=== PATIENT | male | born 1975 | race Hispanic/Latino ===

== ENCOUNTER 2024-04-03 03:11 | Emergency (ER) | payer OTHER ==
[~2024-04-03] VITALS: Ht 175.3 cm; Wt 127.0 kg
[2024-04-03 03:12] VITALS: TEMP 97.9
--- NOTE | 2024-04-03 03:32 | ERN ---
ED Note History of Present Illness Stated Complaint: "PRESSURE" TO FACE AND LIMBS, HTN, RT FLANK PAIN Chief Complaint: Multiple Complaints Time Seen by MD: 03:20 Dictation: This is a 48-year-old obese male who comes into the ER complaining of weird feeling of feeling a pressure on his face limbs and he also experienced some right-sided flank pain for a day or 2 which resolved during my evaluation. He has a known history of hypertension and he takes olmesartan 40 mg at bedtime. He also is supposed to take metformin twice a day but he chose to take it only once a day on his own He snores quite heavily and wakes himself up many times in the night. He has never had any sleep study done to evaluate for obstructive sleep apnea syndrome He stated that he went to bed as usual and start snoring immediately and woke up in the middle of the night and called his son. Apparently he checked his blood pressure and it was 177/83 he wanted to get it checked out hence he came to the ER Temperature 97.9 pulse 82 respirations 18 blood pressure 190/108 with a pulse oximetry of 97% on room air He denied any headache blurred vision facial droop slurred speech diplopia motor weakness or seizure activity no tingling numbness. No hematuria burning micturition or dysuria His chronic medical problems include diabetes mellitus and hypertension morbid obesity Allergies: Coded Allergies: No Known Allergies (Unverified Allergy, Unknown, 09/08/13) Past Medical History Past Medical History: Diabetes-Type II, Hypertension Surgical History: Other Surgical History Other: LEFT ANKLE Family History: Negative Social History: Negative RN Note Reviewed/Agreed w/PFSH: Yes Review of System Dictation As described in the history of present illness Constitutional: Negative for fever,chills, and weight loss Eyes: Negative for injury, pain,redness, and discharge ENT: Negative for injury,pain or swelling Cardiovascular: Negative for chest pain, palpitations, and edema Respiratory: Negative for shortness of breath, cough, and wheezing, Abdomen/GI: Negative for abdominal pain, nausea, vomiting, diarrhea, and constipation Back: Negative for injury and pain : Negative for injury, bleeding and discharge MS/Extremity: Negative for injury and deformity Skin: Negative for rash, and discoloration Neuro: Negative for headache, weakness, numbness, tingling, and seizure Psych: Negative for suicide ideation, homicidal ideation, and hallucinations Initial Vital Sign VS Vital Signs Date Time Temp Pulse Resp B/P (MAP) Pulse Ox O2 Delivery O2 Flow Rate FiO2 04/03/24 03:12 97.9 82 18 190/108 97 Room Air 04/03/24 03:39 0 21 Physical Exam Dictation General: awake, alert, NAD very obese with a BMI of 41 Head/Face: Normocephalic, atraumatic Eyes: PERRL, EOMI, vision at baseline ENT: oral cavity clear, TMs clear, no signs of infection Neck: Trachea midline, supple, no nuchal rigidity, short and thick Cardiovascular: RRR, normal S1/S2, No MRGs, no JVD Respiratory: CTAB, no respiratory distress, No rales or wheezes Abdomen: Soft, non-tender, non-distended, normal bowel sounds, no guarding or rebound. Skin: Warm, dry, normal turgor, no rash MS/Extremity: Pulses equal, no cyanosis, neurovascular intact, FROM Neuro: COAx4, GCS 15, strength 5/5, CN 2-12 intact, normal cerebellar exam, normal gait, Psych: Normal behavior, mood, and affect normal Extremities-trace edema without any palpable cords, Homans sign is negative Results (Laboratory/Radiology) Laboratory/Radiology Laboratory Tests Test 04/03/24 03:35 04/03/24 04:16 White Blood Count 7.7 K/uL (4.8-10.8) Red Blood Count 5.55 MIL/uL (4.50-6.20) Hemoglobin 15.8 g/dL (14.0-18.0) Hematocrit 46.6 % (42-54) Mean Corpuscular Volume 84.0 fL (79-99) Mean Corpuscular Hemoglobin 28.5 pg (27.0-33.0) Mean Corpuscular Hemoglobin Concent 33.9 g/dL (32.0-36.0) Red Cell Distribution Width 13.3 % (11.0-15.5) Platelet Count 183 K/uL (130-400) Mean Platelet Volume 12.1 fL (7.5-10.5) H Immature Granulocyte % (Auto) 0.3 % (0-1) Neutrophils (%) (Auto) 46.6 % (40.0-77.0) Lymphocytes (%) (Auto) 41.1 % (21.0-51.0) Monocytes (%) (Auto) 8.9 % (3.0-13.0) Eosinophils (%) (Auto) 2.6 % (0.0-8.0) Basophils (%) (Auto) 0.5 % (0.0-5.0) Neutrophils # (Auto) 3.6 K/uL (1.8-7.7) Lymphocytes # (Auto) 3.2 K/uL (1.0-4.8) Monocytes # (Auto) 0.7 K/uL (0.1-1.0) Eosinophils # (Auto) 0.20 K/uL (0.00-0.70) Basophils # (Auto) 0.04 K/uL (0.00-0.20) Absolute Immature Granulocyte (auto 0.02 K/uL (0-1) Nucleated Red Blood Cells 0.0 % (0.0-0.19) Urine Color LIGHT-YELLOW (YELLOW) Urine Appearance CLEAR (CLEAR) Urine pH 5.5 (5.0-8.0) Urine Specific [place] 1.017 (1.001-1.031) Urine Protein NEGATIVE mg/dL (NEGATIVE) Urine Glucose (UA) NEGATIVE mg/dL (NEGATIVE) Urine Ketones NEGATIVE mg/dL (NEGATIVE) Urine Occult Blood NEGATIVE (NEGATIVE) Urine Nitrate NEGATIVE (NEGATIVE) Urine Bilirubin NEGATIVE mg/dL (NEGATIVE) Urine Urobilinogen 0.2 mg/dL (0.2-1.0) Urine Leukocyte Esterase NEGATIVE Raymond/uL Troponin I High Sensitivity 8 ng/L (4-75) Urine Opiates Screen NEGATIVE (NEGATIVE) Urine Barbiturates Screen NEGATIVE (NEGATIVE) Urine Phencyclidine Screen NEGATIVE (NEGATIVE) Urine Amphetamines Screen NEGATIVE (NEGATIVE) Urine Benzodiazepines Screen NEGATIVE (NEGATIVE) Urine Cocaine Screen NEGATIVE (NEGATIVE) Urine Marijuana (THC) Screen NEGATIVE (NEGATIVE) Sodium Level 139 mmol/L (136-145) Potassium Level 3.9 mmol/L (3.5-5.1) Chloride Level 102 mmol/L (101-111) Carbon Dioxide Level 29 mmol/L (21-32) Blood Urea Nitrogen 13 mg/dL (7-18) Creatinine 0.8 mg/dL (0.5-1.3) Glomerular Filtration Rate Calc 108 mL/min (>90) Random Glucose 139 mg/dL (70-105) H Total Calcium 8.6 mg/dL (8.5-10.1) Lipase 33 U/L (16-77) Labs Reviewed?: Yes ED Course ED Course Orders Procedure Category Date Status Time Urinalysis Profile LAB 04/03/24 Complete 03:22 Cbc With Differential LAB 04/03/24 Complete 03:23 Troponin I High LAB 04/03/24 Complete Sensitivity 03:23 Drug Screen Urine LAB 04/03/24 Complete 03:29 Hydralazine 20mg Inj PHA 04/03/24 Complete (Apresoline 20mg In 03:30 Basic Metabolic Panel LAB 04/03/24 Complete 04:16 Lipase LAB 04/03/24 Complete 04:16 Current Medications Medications (Trade) Dose Ordered Sig/José Miguel Route PRN Reason Start Time Stop Time Status Last Admin Dose Admin Hydralazine HCl (APRESOLine 20MG INJ) 20 mg ONCE ONCE IV 04/03/24 03:30 04/03/24 03:31 DC 04/03/24 04:05 Vital Signs Date Time Temp Pulse Resp B/P (MAP) Pulse Ox O2 Delivery O2 Flow Rate FiO2 04/03/24 04:48 74 16 156/81 98 Room Air* 0 21 04/03/24 03:39 74 16 163/93 98 Room Air* 0 21 04/03/24 03:12 97.9 82 18 190/108 97 Room Air We will perform diagnostic labs, advanced imaging and administer medications according to the patient's complaint. Once the results are available, will review and personally interpreted the labs to rule out any acute life- threatening emergency the trach require immediate intervention and treatment. I will then re-evaluate the patient after treatment and diagnostic exams have return to determine whether the patient requires any further testing, can safely be discharged home or need further admission to hospital for additional treatment and evaluation. Labs reviewed CBC is normal urinalysis is unremarkable. UDS is negative. Patient's repeat blood pressure after a dose of hydralazine was 163/93. I had a long discussion with the patient and his son about likely explanation for his uncontrolled blood pressure which is not uncommon with untreated sleep apnea syndrome. Considering his body habitus, thick short neck which is at least more than 18-19 cm circumference, Mallampati score of 4, it is very highly likely that patient has a obstructive sleep apnea syndrome. Respiratory events during sleep or associated with arousal and increase in the blood pressure. They both verbalized full understanding and I had recommended outpatient sleep study and also reiterated the compliance with medications, aggressive weight loss and lifestyle changes. Medical Decision Making MDM MDM: Differential diagnosis: Nocturnal hypertensive emergency or uncontrolled hypertension is likely related to undiagnosed and untreated sleep apnea sy ndrome. It is also questionable is the patient has been compliant with his antihypertensives. Rationale: Tests considered and ordered secondary to shared decision making include: Previous outside records reviewed: Old ER visits. Risk of complication and/or morbidity or mortality of patient management: None Medications-Per medication reconciliation Need for hospitalization: Patient does not meet criteria for hospitalization. Need for emergency major/minor surgery: No There are no social concerns with this patient. Prescription drug management Prescriptions will include symptomatic care Patient's prior external medical records from other ER visits were reviewed by me as indicated. Prior testing and results from previous visits were reviewed. Prior tests were taken into account with medical decision making and resource utilization, independent historian/historians were used to obtain complete medical history. I independently interpreted the test that were performed, results were reviewed by me and considered findings on radiology if ordered. Medical management and examination interpretation discussions were had by me with other qualified healthcare professionals as indicated for the patient's care. Problem List Problem List: (1) Obstructive sleep apnea syndrome in adult (2) Hypertensive urgency (3) Diabetes mellitus DX & DISP Disposition: Discharge Departure Impression: Primary Impression: Hypertensive urgency Additional Impressions: Diabetes mellitus, Obstructive sleep apnea syndrome in adult Condition: Stable Additional Instructions: Patient and the caregiver have been informed of all the diagnostic tests and the imaging conducted during the today's visit to the emergency room and has verbalized understanding of the results I have personally reviewed and interpreted all diagnostic exams performed here in the ER today as well as the vital signs documented by the nursing staff. The patient is now being discharged to home and should follow up with the primary care physician or the specialist as directed by the ER staff. Follow-up with primary care provider in 1 to 2 days. Take medications as directed here in the emergency room. Okay to continue home medications unless otherwise discussed during your visit in the emergency room today. Return to your nearest emergency room if symptoms worsen or if there is no improvement. Call 911 if you need immediate assistance. Take Tylenol or Motrin [id number] as needed and if no contraindications are present. Increase oral hydration. A wound culture or urine culture was ordered here in the emergency room department please follow-up with primary care provider and advise them to get repeat ports from our facility. If you had any Norbert wrap/splints that were applied here, please do not remove them until you see your primary care or specialty. Patient stated that he has a primary care physician and he will follow up for home sleep study. Referrals: SELF,REFERRAL (PCP) GUERRERO RUELAS MD Apr 03, 2024 03:32
[2024-04-03 03:45] LABS: BASOPHILS # (AUTO) 0.04 K/uL (0.00-0.20); BASOPHILS % (AUTO) 0.5 % (0.0-5.0); EOSINOPHILS % (AUTO) 2.6 % (0.0-8.0); HEMATOCRIT 46.6 % (42-54); IMMATURE GRANULOCYTE ABSOLUTE 0.02 K/uL (0-1); LYMPHOCYTES # (AUTO) 3.2 K/uL (1.0-4.8); LYMPHOCYTES % (AUTO) 41.1 % (21.0-51.0); MEAN CORPUSCULAR HEMOGLOBIN 28.5 pg (27.0-33.0); MEAN CORPUSCULAR HGB CONC 33.9 g/dL (32.0-36.0); MONOCYTES # (AUTO) 0.7 K/uL (0.1-1.0); MONOCYTES % (AUTO) 8.9 % (3.0-13.0); NEUTROPHILS # (AUTO) 3.6 K/uL (1.8-7.7); NEUTROPHILS % (AUTO) 46.6 % (40.0-77.0); PLATELET COUNT (AUTO) 183 K/uL (130-400); RED BLOOD CELL COUNT(AUTO) 5.55 MIL/uL (4.50-6.20); RED CELL DISTRIBUTION WIDTH 13.3 % (11.0-15.5); WHITE BLOOD COUNT (AUTO) 7.7 K/uL (4.8-10.8)
[2024-04-03 03:46] LABS: APPEARANCE,URINE CLEAR (CLEAR); BILIRUBIN,URINE NEGATIVE (NEGATIVE); COLOR,URINE LIGHT-YELLOW (YELLOW); GLUCOSE, URINE (UA) NEGATIVE (NEGATIVE); KETONES,URINE NEGATIVE (NEGATIVE); LEUKOCYTE ESTERASE ,URINE NEGATIVE Leu/uL (NEGATIVE); NITRATE,URINE NEGATIVE (NEGATIVE); OCCULT BLOOD,URINE NEGATIVE (NEGATIVE); PH,URINE 5.5 (5.0-8.0); PROTEIN,URINE NEGATIVE (NEGATIVE); UROBILINOGEN,URINE 0.2 mg/dL (0.2-1.0)
[2024-04-03 03:53] LABS: AMPHET/METH SCREEN,URINE NEGATIVE (NEGATIVE); BARBITURATE SCREEN, URINE NEGATIVE (NEGATIVE); BENZODIAZEPINES SCREEN,URINE NEGATIVE (NEGATIVE); CANNABINOID SCREEN,URINE NEGATIVE (NEGATIVE); COCAINE SCREEN,URINE NEGATIVE (NEGATIVE); OPIATE SCREEN,URINE NEGATIVE (NEGATIVE); PHENCYCLIDINE SCREEN,URINE NEGATIVE (NEGATIVE)
[2024-04-03 03:56] LABS: ADD UA MICROSCOPIC NO
[2024-04-03] MEDS: hydrALAZine 20MG/ML VIAL IV ONE (04:05)
[2024-04-03 04:44] LABS: CREATININE 0.8 mg/dL (0.5-1.3); POTASSIUM 3.9 mmol/L (3.5-5.1)
[2024-04-03 04:48] VITALS: BP 156/81; PULSE 74; RESP 16; O2SAT 98
== END 2024-04-03 05:06 | disposition home or self-care (01) ==
LOC: EDH 03:11
DX: I16.0 Hypertensive urgency (principal); G47.33 Obstructive sleep apnea (adult) (pediatric); E11.9 Type 2 diabetes mellitus without complications; I10 Essential (primary) hypertension; Z79.899 Other long term (current) drug therapy
CPT/HCPCS: 99283; 96374; 84484; 80048; 80305; 83690; 85025; 36415; 81003; J0360

== ENCOUNTER 2024-08-16 22:25 | Emergency (ER) | payer OTHER ==
[~2024-08-16] VITALS: Ht 175.3 cm; Wt 132.0 kg
[2024-08-16] MEDS: ketOROlac 15MG/ML VIAL (15MG/ML) IV ONE (23:12)
[2024-08-16] MEDS: LACTATED RINGERS 1000ML 1,000 ML IV ONE (23:13)
--- NOTE | 2024-08-16 23:20 | HMCIMG ---
CT ABDOMEN/PELVIS W/O CONTRAST HISTORY: Left lower quadrant pain COMPARISON: None TECHNIQUE: Multiple sequential axial images of the abdomen and pelvis were obtained from the dome of the diaphragm through symphysis pubis. Patient was not given contrast through intravenous route. Oral contrast was not given. FINDINGS: No pleural effusion is seen bilaterally. There is no evidence of parenchymal disease or pulmonary nodule of the visualized lower lungs. Degenerative changes of the thoracolumbar spine are present. The heart is not enlarged. Liver is unremarkable hepatic changes measuring 22 cm. The liver, spleen, adrenal glands and pancreas are unremarkable. No hydronephrosis is seen on the right. There is mild left hydronephrosis with 2 mm stone in the left UVJ junction. Fecal material is seen in the colon. There are normal size retroperitoneal and mesenteric lymph nodes. No ascites is seen. Atherosclerotic changes are present. Pelvic sidewalls are symmetric bilaterally. Bladder is poorly distended. IMPRESSION: 1. There is mild left hydronephrosis with 2 mm stone in the left UVJ junction. CT was performed with one or more following dose reduction techniques: automated exposure control, adjustment of the mA and kv according to patient's size, or use of a iterative reconstruction technique.
[2024-08-16 23:28] LABS: APPEARANCE,URINE CLOUDY (CLEAR); BILIRUBIN,URINE NEGATIVE (NEGATIVE); COLOR,URINE YELLOW (YELLOW); GLUCOSE, URINE (UA) NEGATIVE (NEGATIVE); KETONES,URINE NEGATIVE (NEGATIVE); LEUKOCYTE ESTERASE ,URINE NEGATIVE Leu/uL (NEGATIVE); NITRATE,URINE NEGATIVE (NEGATIVE); OCCULT BLOOD,URINE LARGE (NEGATIVE); PH,URINE 5.5 (5.0-8.0); PROTEIN,URINE 20 mg/dL (NEGATIVE); UROBILINOGEN,URINE 0.2 mg/dL (0.2-1.0)
[2024-08-16 23:42] LABS: ADD UA MICROSCOPIC YES
[2024-08-16 23:45] LABS: BASOPHILS # (AUTO) 0.03 K/uL (0.00-0.20); BASOPHILS % (AUTO) 0.2 % (0.0-5.0); EOSINOPHILS # (AUTO) 0.05 K/uL (0.00-0.70); EOSINOPHILS % (AUTO) 0.4 % (0.0-8.0); HEMATOCRIT 42.7 % (42-54); IMMATURE GRANULOCYTE ABSOLUTE 0.06 K/uL (0-1); LYMPHOCYTES # (AUTO) 1.5 K/uL (1.0-4.8); LYMPHOCYTES % (AUTO) 12.1 % (21.0-51.0); MEAN CORPUSCULAR HEMOGLOBIN 28.5 pg (27.0-33.0); MEAN CORPUSCULAR HGB CONC 33.3 g/dL (32.0-36.0); MEAN CORPUSCULAR VOLUME 85.6 fL (79-99); MONOCYTES % (AUTO) 7.8 % (3.0-13.0); PLATELET COUNT (AUTO) 208 K/uL (130-400); RED BLOOD CELL COUNT(AUTO) 4.99 MIL/uL (4.50-6.20); RED CELL DISTRIBUTION WIDTH 13.4 % (11.0-15.5); WHITE BLOOD COUNT (AUTO) 12.7 K/uL (4.8-10.8)
[2024-08-16] MEDS ORDERED: HYDR-4060 PO (23:51)
[2024-08-16] MEDS ORDERED: IBUP-2077 PO (23:51)
--- NOTE | 2024-08-16 23:52 | ERN ---
General Chief Complaint: Abdominal Pain Stated Complaint: LLQ ABDOMINAL PAIN Time Seen by MD: 22:31 History of Present Illness Initial Comments 48M hx kidney stones presents for left lower quadrant colicky type pain beginning earlier this afternoon. Mostly located in left lower quadrant. He describes the pain as feeling as though it is descending into his bladder. Severe at times. No vomiting. No fevers. He reports hesitancy with urination. No hematuria. No flank pain. No GI symptoms. Allergies: Coded Allergies: No Known Allergies (Unverified Allergy, Unknown, 09/08/13) Home Meds Active Scripts Hydrocodone/Acetaminophen (Hydrocodon-Acetaminophen 5-325) 5 Mg-325 Mg Tablet, 1 TAB PO TIDP PRN for pain for 5 Days, #15 TAB 0 Refills Prov:KERRY LEVI DO 08/16/24 Ibuprofen (Ibuprofen 800 mg Tab) 800 Mg Tab, 800 MG PO Q6H PRN for PAIN, #30 TAB Prov:KERRY LEVI DO 08/16/24 Past Medical History Past Medical History: Hypertension, Kidney Stone Past Surgical History: Other Surgical History Other: LEFT ANKLE SX Family History Family History: Negative Social History Social History: Negative ROS Dictation CONSTITUTIONAL: No chills, no fever, no weakness, no diaphoresis, no malaise. HEAD/FACE: No signs of trauma. EENT: No eye pain, no blurred vision, no tearing, no double vision, no ear pa in, no ear discharge, no nose pain, no nasal congestion, no throat pain, no throat swelling, no mouth pain. RESPIRATORY: No cough, no orthopnea, no SOB, no stridor, no wheezing. CARDIOVASCULAR: No chest pain, no edema, no palpitations, no syncope. GASTROINTESTINAL/ABDOMINAL: Left flank pain GENITOURINARY: No abnormal discharge, no dysuria, no frequent urination, no hematuria. No complaints of pain in the genitals. MUSCULOSKELETAL: No back pain, no gout, no joint pain, no joint swelling, no muscle pain, no muscle stiffness, no neck pain. INTEGUMENTARY: No change in color, no change in hair/nails, no dryness, no lesion, no lumps, no rash. NEUROLOGICAL/PSYCH: No anxiety, not depressed, no emotional problem, no headache, no numbness, no pre-existing deficit, no history of seizures, no tremors, no weakness. HEMATOLOGIC/LYMPHATIC: Not anemic, no history of blood clots, no apparent bleeding, no bruising, glands not swollen. All Systems Negative, Except as Noted. Physical Exam Physical Exam Dictation VITAL SIGNS: Reviewed. GENERAL APPEARANCE: Alert, oriented x3, no acute distress, obese. HEAD AND FACE: Non-traumatic. EYES: PERRL, pink conjunctivas, eyelid no trauma, anterior chamber clear. EARS: Pinnas intact and no signs of trauma or erythema. Ear canals clear and no discharge. TMs no erythema. NOSE: No discharge, no bleeding. OROPHARYNX: Mouth normal, teeth no caries, tongue pink. Pharynx clear, no erythema. Tonsils no exudates, no abscesses noted. Mucous membrane moist. NECK: Supple, non-tender, no thyromegaly, no masses, no JVD, no bruits. BREAST: Deferred. CHEST: No tenderness, no crepitus, no paradoxical movement, no retractions. LUNGS: Clear, well-ventilated, symmetric, no rales, no wheezing, no rhonchi, no stridor, good breath sounds bilaterally. HEART: Regular rate, regular rhythm, no murmur, no gallops. VASCULAR: No peripheral edema. ABDOMEN: Soft, positive bowel sounds, nondistended, no guarding, nontender, no rebound, no masses no hepatomegaly, no splenomegaly, no Carter's sign, no hernias. RECTAL: Deferred. GENITAL: Deferred. NEUROLOGICAL: Normal speech, gross motor function intact, gross sensory function intact. MUSCULOSKELETAL: Neck nontender, full range of motion, back nontender, full range of motion. EXTREMITIES: Nontender, full range of motion. SKIN: Color pink, dry, no turgor, no rash, no lacerations, no abrasions, no contusions. LYMPHATICS: Deferred. Results Laboratory and Microbiology Lab and Micro Result Laboratory Tests Test 08/16/24 23:14 08/16/24 23:37 Urine Color YELLOW (YELLOW) Urine Appearance CLOUDY (CLEAR) H Urine pH 5.5 (5.0-8.0) Urine Specific [place] 1.019 (1.001-1.031) Urine Protein 20 mg/dL (NEGATIVE) H Urine Glucose (UA) NEGATIVE mg/dL (NEGATIVE) Urine Ketones NEGATIVE mg/dL (NEGATIVE) Urine Occult Blood LARGE (NEGATIVE) H Urine Nitrate NEGATIVE (NEGATIVE) Urine Bilirubin NEGATIVE mg/dL (NEGATIVE) Urine Urobilinogen 0.2 mg/dL (0.2-1.0) Urine Leukocyte Esterase NEGATIVE Raymond/uL Urine RBC TNTC /HPF (0-1) H Urine WBC 2-5 /HPF (0-1) H Urine Calcium Oxalate Crystals RARE /LPF (None Seen) Urine Bacteria FEW /HPF (None Seen) Urine Hyaline Casts 2-5 /LPF (0-1 /LPF) H White Blood Count 12.7 K/uL (4.8-10.8) H Red Blood Count 4.99 MIL/uL (4.50-6.20) Hemoglobin 14.2 g/dL (14.0-18.0) Hematocrit 42.7 % (42-54) Mean Corpuscular Volume 85.6 fL (79-99) Mean Corpuscular Hemoglobin 28.5 pg (27.0-33.0) Mean Corpuscular Hemoglobin Concent 33.3 g/dL (32.0-36.0) Red Cell Distribution Width 13.4 % (11.0-15.5) Platelet Count 208 K/uL (130-400) Mean Platelet Volume 12.1 fL (7.5-10.5) H Immature Granulocyte % (Auto) 0.5 % (0-1) Neutrophils (%) (Auto) 79.0 % (40.0-77.0) H Lymphocytes (%) (Auto) 12.1 % (21.0-51.0) L Monocytes (%) (Auto) 7.8 % (3.0-13.0) Eosinophils (%) (Auto) 0.4 % (0.0-8.0) Basophils (%) (Auto) 0.2 % (0.0-5.0) Neutrophils # (Auto) 10.0 K/uL (1.8-7.7) H Lymphocytes # (Auto) 1.5 K/uL (1.0-4.8) Monocytes # (Auto) 1.0 K/uL (0.1-1.0) Eosinophils # (Auto) 0.05 K/uL (0.00-0.70) Basophils # (Auto) 0.03 K/uL (0.00-0.20) Absolute Immature Granulocyte (auto 0.06 K/uL (0-1) Nucleated Red Blood Cells 0.0 % (0.0-0.19) Sodium Level 137 mmol/L (136-145) Potassium Level 4.4 mmol/L (3.5-5.1) Chloride Level 102 mmol/L (101-111) Carbon Dioxide Level 24 mmol/L (21-32) Blood Urea Nitrogen 19 mg/dL (7-18) H Creatinine 0.9 mg/dL (0.5-1.3) Glomerular Filtration Rate Calc 104 mL/min (>90) Random Glucose 175 mg/dL (70-105) H Total Calcium 9.4 mg/dL (8.5-10.1) Lipase 28 U/L (16-77) MDM CC: Left lower abdominal pain Historian: Patient Comorbidities: Obesity, hypertension, history of kidney stones Limitations by social determinants of health: None Differential diagnosis: Kidney stone, GI pathology, other. Vital signs: Stable, remained stable in the ER. CT abdomen and pelvis without contrast (independently interpreted by me): Small stone at the UVJ. No hydronephrosis. No surgical pathology. Labs (independently ordered and interpreted by me): Mild leukocytosis 12 K left shift no bands. Chemistries unremarkable including renal function. Urinalysis shows blood no signs of bacteria. Treatment in ED: IV fluids, IV Toradol. I had offered the patient IV morphine, brought by the time the medicine was brought to the bedside the pain had greatly improved in the patient declined. Based on the patient's presentation, he has a simple kidney stone. There was no hydronephrosis, kidney disease renal function, signs of SIRS or sepsis, or uncontrolled vomiting, or uncontrolled pain. Plan will be to discharge with prescription for ibuprofen and [place] tabs. We will recommend PCP follow up. ED Course Orders Procedure Category Date Status Time Cbc With Differential LAB 08/16/24 Complete : Urinalysis Profile LAB 08/16/24 Complete 22:31 Lactated Ringers PHA 08/16/24 Complete 1000ml (Lactated 23:00 Ketorolac PHA 08/16/24 Complete Tromethamine 15mg/Ml 23:00 Morphine 4mg Syg PHA 08/16/24 Complete (Morphine 4mg Syg) 23:00 Ondansetron 4mg Inj PHA 08/16/24 Complete (Zofran 4mg Inj) 23:00 Ct Abdomen/Pelvis W/O CT 08/16/24 Resulted Contrast 22:31 Lipase LAB 08/16/24 Complete 22:31 Basic Metabolic Panel LAB 08/16/24 Complete 22:31 Current Medications Medications (Trade) Dose Ordered Sig/José Miguel Route PRN Reason Start Time Stop Time Status Last Admin Dose Admin Ketorolac Tromethamine (toRADol) 15 mg ONCE ONCE IV 08/16/24 23:00 08/16/24 23:01 DC 08/16/24 23:12 Lactated Ringer's 1,000 ml @ 0 mls/hr ONCE ONCE IV 08/16/24 23:00 08/16/24 23:01 DC 08/16/24 23:13 Morphine Sulfate (morPHINE 4MG SYG) 4 mg ONCE ONCE IVP 08/16/24 23:00 08/16/24 23:01 DC Ondansetron HCl (zoFRAN 4MG INJ) 4 mg ONCE ONCE IVP 08/16/24 23:00 08/16/24 23:01 DC Vital Signs Date Time Temp Pulse Resp B/P (MAP) Pulse Ox O2 Delivery O2 Flow Rate FiO2 08/16/24 23:15 98.1 96 20 150/90 99 Room Air* 0 21 08/16/24 22:27 98.2 97 18 154/90 95 Room Air 0 DX & DISP Disposition: Discharge Departure Impression: Primary Impression: Kidney stone on left side Condition: Stable Scripts Hydrocodone/Acetaminophen (Hydrocodon-Acetaminophen 5-325) 5 Mg-325 Mg Tablet 1 TAB PO TIDP PRN for pain for 5 Days, #15 TAB 0 Refills Prov: KERRY LEVI DO 08/16/24 Ibuprofen (Ibuprofen 800 mg Tab) 800 Mg Tab 800 MG PO Q6H PRN for PAIN, #30 TAB Prov: KERRY LEVI DO 08/16/24 Additional Instructions: You have a 2 mm kidney stone on the left side causing your pain. Your blood work is unremarkable. Your urinalysis shows blood consistent with a kidney stone but is otherwise unremarkable. The CT scan of your abdomen and pelvis shows a kidney stone. There are no other dangerous findings on your workup. As we discussed, most stones 2 mm in size will pass on their own. I recommend drinking plenty of liquids. Take 800 mg of ibuprofen up to 3 times a day as needed for pain and inflammation. I have also prescribed [place] tabs, which is a combination Tylenol-opiate pain medication. You can take this every 4 hours as needed for pain. I recommend that you make an appointment with your primary doctor for re- evaluation. You may need further studies or to see a specialist. Please return to the emergency department if you have any significant pain that does not respond to pain medicines, persistent vomiting, high fevers, or any other concerning symptom. Referrals: MELISSA PHELPS (PCP) KERRY LEVI DO Aug 16, 2024 23:52
[2024-08-16 23:57] LABS: CREATININE 0.9 mg/dL (0.5-1.3); POTASSIUM 4.4 mmol/L (3.5-5.1)
[2024-08-17 00:07] LABS: BACTERIA,URINE FEW /HPF (None Seen); CALCIUM OXALATE CRYSTALS,UR RARE /LPF (None Seen); MUCUS,URINE RARE LPF (None Seen); RBC,URINE TNTC /HPF (0-1)
[2024-08-17] MEDS: morPHINE 4 MG SYG IVP ONE (00:09)
[2024-08-17] MEDS: ondanSETRON 4MG INJ IVP ONE (00:10)
[2024-08-17 00:20] VITALS: BP 145/81; PULSE 96; RESP 20; TEMP 98.1; O2SAT 95
== END 2024-08-17 00:31 | disposition home or self-care (01) ==
LOC: EDH 22:25
DX: N20.0 Calculus of kidney (principal); E66.9 Obesity, unspecified; I10 Essential (primary) hypertension
CPT/HCPCS: 99285; 74176; 96374; 96361; 80048; 83690; 85025; 81001; 36415; J1885; J7120; J2270; J2405